=== PATIENT | male | born 1960 | race Caucasian/White ===

== ENCOUNTER 2017-10-14 12:10 | Emergency (ER) | payer OTHER, BC ==
[2017-10-14] MEDS ORDERED: Diphtheria,Pertussis(Acell),Tetanus Vaccine 0.5 ML Syringe IM ONE (12:40)
[2017-10-14] MEDS ORDERED: Lidocaine 2% 10 ML Amp INJECT ONE (12:40)
--- NOTE | 2017-10-14 12:41 | EDM.PDOC ---
ED HPI GENERAL MEDICAL PROBLEM - General Chief Complaint: Laceration Stated Complaint: ER Time Seen by Provider: 10/14/17 12:21 Source of Information: Reports: Patient, RN, RN Notes Reviewed History Limitations: Reports: No Limitations - History of Present Illness INITIAL COMMENTS - FREE TEXT/NARRATIVE: patient presents the emergency room [facility] after he sustained a laceration to the third digit on the right hand. This is a work-related injury. The patient states that he was cutting meat on a band saw when his finger slipped hitting the blade causing the laceration. The patient denies any numbness tingling or paresthesia to the right upper extremity. The patient denies any previous injury to the affected digit. The patient has normal range of motion of the right hand fingers. Onset: Today, Sudden Onset Date: 10/14/17 - Related Data Allergies Allergy/AdvReac Type Severity Reaction Status Date / Time No Known Allergies Allergy Verified 10/14/17 13:44 ED ROS GENERAL - Review of Systems Review Of Systems: See Below Constitutional: Denies: Fever, Chills, Weakness Respiratory: Denies: Shortness of Breath, Cough Cardiovascular: Denies: Chest Pain, Palpitations GI/Abdominal: Denies: Abdominal Pain, Nausea, Vomiting Skin: Reports: Wound (cut to finger) Neurological: Denies: Numbness, Paresthesia, Tingling ED EXAM, SKIN/RASH Exam: See Below Exam Limited By: No Limitations General Appearance: Alert, No Apparent Distress Respiratory/Chest: No Respiratory Distress, Lungs Clear, Normal Breath Sounds Cardiovascular: Normal Peripheral Pulses, Regular Rate, Rhythm Peripheral Pulses: 2+: Radial (L), Radial (R) GI/Abdominal: Normal Bowel Sounds, Soft, Non-Tender Neurological: Alert, Oriented, No Motor/Sensory Deficits Skin: Warm, Dry, Normal Color, Wound/Incision (C-shaped avulsion laceration to the 3rd digit right hand; medium grade venous ooze; no obvious bone deformity; tendons intact; no foreign body) ED SKIN PROCEDURES - Laceration/Wound Repair Right Middle Finger Appearance: Subcutaneous, Irregular, Clean Distal NVT: Neuro & Vascular Intact, No Tendon Injury Anesthetic Type: Digital Local Anesthesia - Lidocaine (Xylocaine): 2% Plain Local Anesthetic Volume: Other (10cc) Skin Prep: Chlorhexidine (Hibiciens), Saline Exploration/Debridement/Repair: Wound Explored, In a Bloodless Field, Explored to Base, No Foreign Material Found Closed with: Sutures Suture Size: 4-0 # of Sutures: 8 Suture Type: Nylon, Interrupted, Simple Sterile Dressing Applied: Nurse Tetanus Status Addressed: Yes Complications: No Course - Orders/Labs/Meds Orders: Active Orders 24 hr Category Date Time Status Vaccines to be Administered [RC] PER UNIT ROUTINE Care 10/14/17 12:40 Active Fingers Third Digit Rt F7 [CR] Stat Exams 10/14/17 12:27 Ordered Meds: Medications Discontinued Medications Generic Name Dose Route Start Last Admin Trade Name Freq PRN Reason Stop Dose Admin Diphtheria/Tetanus/Acell Pertussis 0.5 ml 10/14/17 12:40 Adacel IM 10/14/17 12:41 .ONCE ONE Lidocaine HCl 10 ml 10/14/17 12:40 Xylocaine-Mpf 2% (Sterile-Philippe) INJECT 10/14/17 12:41 ONETIME ONE Departure - Departure Time of Disposition: 13:48 Disposition: Home, Self-Care 01 Condition: Good Clinical Impression: Encounter related to worker's compensation claim Finger laceration Qualifiers: Encounter type: initial encounter Finger: middle finger Damage to nail status: without damage Foreign body presence: without foreign body Laterality: right Qualified Code(s): S61.212A - Laceration without foreign body of right middle finger without damage to nail, initial encounter - Discharge Information Instructions: Laceration Care, Adult, Sutured Wound Care Referrals: Dominic Ruano MD [Primary Care Provider] - Forms: ED Department Discharge Additional Instructions: 1. Stay well hydrated and rest 2. Sutures to stay in for 10 days 3. Keep bandage on for the first 24 hours 4. May shower/bath as usual 5. See your Primary in 10 days for a recheck and possible suture removal 6. Call us with any questions/concerns - Problem List Review Problem List Initiated/Reviewed/Updated: Yes - My Orders Last 24 Hours: My Active Orders 10/14/17 12:27 Fingers Third Digit Rt F7 [CR] Stat 10/14/17 12:40 Vaccines to be Administered [RC] PER UNIT ROUTINE - Assessment/Plan Last 24 Hours: My Active Orders 10/14/17 12:27 Fingers Third Digit Rt F7 [CR] Stat 10/14/17 12:40 Vaccines to be Administered [RC] PER UNIT ROUTINE
== END 2017-10-14 14:25 | disposition home or self-care (01) ==
LOC: VM.ED 12:10
DX: S61.212A Laceration without foreign body of right middle finger without damage to nail, initial encounter (principal); W31.2XXA Contact with powered woodworking and forming machines, initial encounter; Y93.89 Activity, other specified; Y99.0 Civilian activity done for income or pay; Z23 Encounter for immunization
CPT/HCPCS: 12002; 73140-F7; 90471; 90715; 99283

== ENCOUNTER 2021-12-12 11:40 | Emergency (ER) | payer OTHER, BC | END 2021-12-12 12:35 | disposition home or self-care (01) | LOC: VM.ED 11:40 | DX: S61.012A Laceration without foreign body of left thumb without damage to nail, initial encounter (principal); W26.0XXA Contact with knife, initial encounter; Y99.0 Civilian activity done for income or pay | CPT/HCPCS: 12001; 99282-25; 99283 ==